=== PATIENT | female | born 1945 | race Caucasian/White ===

== ENCOUNTER 2018-04-04 19:26 | Emergency (ER) | payer MEDICARE, OTHER ==
[~2018-04-04] VITALS: Ht 160 cm; Wt 70.4 kg
[2018-04-04] MEDS ORDERED: ACETAMINOPHEN 500 MG TABLET ONE (20:07)
[2018-04-04 20:37] VITALS: BP 130/73
== END 2018-04-04 20:40 | disposition home or self-care (01) ==
LOC: ED 20:34
DX: G89.11 Acute pain due to trauma (principal); M25.512 Pain in left shoulder; M79.622 Pain in left upper arm; V49.49XA Driver injured in collision with other motor vehicles in traffic accident, initial encounter; Y93.89 Activity, other specified; Y99.8 Other external cause status; Y92.410 Unspecified street and highway as the place of occurrence of the external cause
CPT/HCPCS: 71046; 99284